=== PATIENT | male | born 1990 | race Caucasian/White ===

== ENCOUNTER 2017-10-20 14:36 | Inpatient (IN) | payer SELFPAY ==
[~2017-10-20] VITALS: Ht 188 cm; Wt 70.8 kg
[2017-10-20] MEDS ORDERED: SODIUM CHLORIDE 0.9% 1,000 ML IV ONE (15:08)
[2017-10-20] MEDS ORDERED: NALOXONE HCL 0.4 MG/ML 1ML VIAL IV PRN (15:15)
[2017-10-20 15:34] LABS: BASOPHILS % 0.2 % (0.0-2.0); EOSINOPHILS % 0.7 % (0.0-5.0); HEMATOCRIT. 38.6 % (42.0-52.0); LYMPHOCYTES % 14.4 % (20.0-50.0); MEAN CORPUSCULAR HEMOGLOBIN 31.3 pg (28.0-32.0); MEAN PLATELET VOLUME 8.2 fl (7.4-10.4); MONOCYTES % 7.8 % (2.0-8.0); NEUTROPHILS % 76.9 % (40.0-76.0); PLATELET 191 x1000/uL (130-400); RED BLOOD CELL COUNT 4.15 mill/uL (4.7-6.1); RED CELL DISTRIBUTION WIDTH 12.7 % (11.6-14.6)
[2017-10-20 15:44] LABS: CHLORIDE 105 mEq/L (98-107); ETHANOL BLOOD < 10 mg/dL
[2017-10-20 15:56] LABS: CLARITY URINE CLEAR (CLEAR); COLOR URINE DARK YELLOW (YELLOW); KETONES URINE 1+ (NEGATIVE); LEUKOCYTE ESTERASE URINE TRACE (NEGATIVE); NITRITE URINE NEGATIVE (NEGATIVE); OCCULT BLOOD URINE TRACE (NEGATIVE); PROTEIN URINE 1+ (NEGATIVE); SPECIFIC GRAVITY URINE 1.032 (1.005-1.030)
[2017-10-20 16:13] LABS: *AMPHETAMINES SCREEN URINE NEGATIVE (NEGATIVE); *BARBITURATES SCREEN URINE NEGATIVE (NEGATIVE); *BENZODIAZEPINES SCREEN URINE NEGATIVE (NEGATIVE); *COCAINE SCREEN URINE NEGATIVE (NEGATIVE); CANNABINOID URINE SCREEN PRESUMTIVE POSITIVE (NEGATIVE); METHADONE URINE SCREEN NEGATIVE (NEGATIVE); OPIATES URINE SCREEN NEGATIVE (NEGATIVE); PHENCYCLIDINE URINE SCREEN NEGATIVE (NEGATIVE)
[2017-10-20] MEDS ORDERED: LORAZEPAM 2MG/ML CPJ IV ONE (18:00)
[2017-10-20] MEDS ORDERED: LEVETIRACETAM 1000MG/100ML 100 ML IV ONE (19:15)
[2017-10-21] VITALS (8 sets, daily range): BP systolic 99–146; BP diastolic 44–86
[2017-10-21] MEDS ORDERED: ONDANSETRON HCL 4MG/2ML VIAL IV PRN ×2 (01:30→02:00)
[2017-10-21] MEDS ORDERED: LEVETIRACETAM 1,000 MG in SODIUM CHLORIDE 0.9% 100 ML IV SCH (01:30)
[2017-10-21] MEDS ORDERED: POTASSIUM CHLORIDE 20MEQ TABLET SR PO ONE ×2 (01:30→02:00)
[2017-10-21] MEDS ORDERED: ACETAMINOPHEN 325MG TABLET PO PRN ×2 (01:30→02:00)
[2017-10-21 06:45] LABS: BASOPHILS % 1.2 % (0.0-2.0); EOSINOPHILS % 3.8 % (0.0-5.0); HEMATOCRIT. 38.1 % (42.0-52.0); LYMPHOCYTES % 34.2 % (20.0-50.0); MEAN CORPUSCULAR HEMOGLOBIN 31.9 pg (28.0-32.0); MEAN CORPUSCULAR VOLUME 93.2 fL (80.0-94.0); MEAN PLATELET VOLUME 8.3 fl (7.4-10.4); MONOCYTES % 9.9 % (2.0-8.0); NEUTROPHILS % 50.9 % (40.0-76.0); PLATELET 162 x1000/uL (130-400); RED BLOOD CELL COUNT 4.09 mill/uL (4.7-6.1); RED CELL DISTRIBUTION WIDTH 12.9 % (11.6-14.6)
[2017-10-21 07:54] LABS: CHLORIDE 108 mEq/L (98-107)
[2017-10-21] MEDS ORDERED: LEVETIRACETAM 500MG TABLET PO SCH (09:00)
[2017-10-21] MEDS ORDERED: LEVETIRACETAM 1000MG/100ML 100 ML IV SCH (09:00)
[2017-10-21] MEDS ORDERED: LORAZEPAM 2MG/ML CPJ IV PRN (10:15)
[2017-10-21] MEDS ORDERED: MULTIVITAMINS,THER W-MINERALS TABLET PO SCH (11:30)
[2017-10-21] MEDS ORDERED: FOLIC ACID 1MG TABLET PO SCH (11:30)
[2017-10-21] MEDS ORDERED: THIAMINE HCL 100MG TABLET PO SCH (11:30)
[2017-10-21] MEDS ORDERED: NICOTINE 7MG PATCH TD SCH (12:00)
[2017-10-21] MEDS ORDERED: NICO-786 TD (12:04)
[2017-10-21] MEDS ORDERED: LEVE1000 PO (12:04)
[2017-10-22 09:06] LABS: ABSOLUTE BASOPHILS 0.1 x10E3/uL (0.0-0.2); ABSOLUTE EOSINOPHILS 0.1 x10E3/uL (0.0-0.4); ABSOLUTE LYMPHOCYTES 1.6 x10E3/uL (0.7-3.1); ABSOLUTE MONOCYTES 0.5 x10E3/uL (0.1-0.9); ABSOLUTE NEUTROPHILS 4.6 x10E3/uL (1.4-7.0); BASOPHILS 1 % (Not Estab.); HEMATOCRIT 42.7 % (37.5-51.0); HEMOGLOBIN 14.3 g/dL (13.0-17.7); IMMATURE GRANULOCYTES 0 % (Not Estab.); LYMPHOCYTES 23 % (Not Estab.); MEAN CORPUSCULAR HEMOGLOBIN 31.4 pg (26.6-33.0); MEAN CORPUSCULAR HGB CONC. 33.5 g/dL (31.5-35.7); MEAN CORPUSCULAR VOLUME 94 fL (79-97); MONOCYTES 7 % (Not Estab.); NEUTROPHILS 67 % (Not Estab.); PLATELETS 229 x10E3/uL (150-379); RBC 4.55 x10E6/uL (4.14-5.80); RED CELL DISTRIBUTION WIDTH 12.9 % (12.3-15.4); WBC 6.9 x10E3/uL (3.4-10.8)
[2017-10-22 13:09] LABS: % CD 3 POS. LYMPHOCYTES 73.8 % (57.5-86.2); % CD 4 POS. LYMPHOCYTES 42.8 % (30.8-58.5); % CD 8 POS. LYMPH 26.4 % (12.0-35.5); ABSOLUTE CD 3 1181 /uL (622-2402); ABSOLUTE CD 4 HELPER 685 /uL (359-1519); ABSOLUTE CD 8 SUPPRESSOR 422 /uL (109-897); CD4/CD8 RATIO 1.62 (0.92-3.72)
== END 2017-10-21 17:20 | disposition home or self-care (01) | DRG 53 ==
LOC: ER 14:54 → EDBD 17:54 → 3WST 17:54 → ENRESERV 22:41
PROVIDERS: ADMIT Internal Medicine; ATTEND Internal Medicine
DX: G40.901 Epilepsy, unspecified, not intractable, with status epilepticus (principal); G93.41 Metabolic encephalopathy; Z21 Asymptomatic human immunodeficiency virus [HIV] infection status; F15.10 Other stimulant abuse, uncomplicated; E87.6 Hypokalemia; D64.9 Anemia, unspecified; F12.10 Cannabis abuse, uncomplicated; F17.210 Nicotine dependence, cigarettes, uncomplicated; N39.0 Urinary tract infection, site not specified; Z91.14 Patient's other noncompliance with medication regimen; Z91.19 Patient's noncompliance with other medical treatment and regimen
CPT/HCPCS: 36415; 70450; 70551; 71045; 76700; 80048; 80053; 80305; 80307; 80329; 81001; 82962; 85025; 86359; 86360; 93005; 93880; 96361; 96365; 96375; 97165; 99285; G0482; J1953; J2060; J2310; J7030; J7040